=== PATIENT | male | born 2000 | race Caucasian/White ===

== ENCOUNTER 2021-07-20 20:14 | Emergency (ER) | payer OTHER ==
[~2021-07-20] VITALS: Ht 165.1 cm; Wt 74.8 kg
--- NOTE | 2021-07-20 20:51 | NUR ---
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
[2021-07-20] MEDS ORDERED: LIDOCAINE 2%-EPI 1:100,000 20 ML VIAL TP ONE (21:00)
[2021-07-20] MEDS ORDERED: LIDOCAINE 2%-EPI 1:100,000 20 ML VIAL ONE (21:27)
[2021-07-20] MEDS ORDERED: ONDA4TAB5 PO (22:18)
[2021-07-20] MEDS ORDERED: IV NS 1000 ML 1,000 ML IV ONE (22:30)
--- NOTE | 2021-07-20 22:35 | NUR ---
Patient discharged to home in stable condition. Written and verbal after care instructions given. Patient verbalizes understanding of instructions. Stressed follow up or return to ER for worsening s/s.
[2021-07-20 22:36] VITALS: BP 120/84
== END 2021-07-20 22:36 | disposition home or self-care (01) ==
LOC: ER 20:16
DX: S06.0X0A Concussion without loss of consciousness, initial encounter (principal); S01.01XA Laceration without foreign body of scalp, initial encounter; W22.8XXA Striking against or struck by other objects, initial encounter; Y92.89 Other specified places as the place of occurrence of the external cause; Y99.0 Civilian activity done for income or pay
CPT/HCPCS: 70450; A4663; L8699

== ENCOUNTER 2021-08-29 20:41 | Emergency (ER) | payer OTHER ==
[~2021-08-29] VITALS: Ht 172.7 cm; Wt 69.9 kg
[~2021-08-29 20:41] MED LIST: ONDA4TAB5 PO
--- NOTE | 2021-08-29 21:02 | NUR ---
Patient walked into ER c/o abdominal pain and 6 episodes of vomiting today. Patient is A/Ox4, not in distress. Patient is accompanied by .
[2021-08-29] MEDS ORDERED: diphenhydrAMINE 50 MG/1 ML VIAL IM ONE (21:30)
[2021-08-29] MEDS ORDERED: METOCLOPRAMIDE HCL 10 MG/2 ML VIAL IM ONE (21:30)
[2021-08-29] MEDS ORDERED: MORPHINE SULFATE 4 MG/1 ML DISP.SYRIN IM ONE (21:30)
--- NOTE | 2021-08-29 21:30 | NUR ---
Patient's at bedside
[2021-08-29] MEDS ORDERED: diphenhydrAMINE 50 MG/1 ML VIAL ONE (21:32)
[2021-08-29] MEDS ORDERED: METOCLOPRAMIDE HCL 10 MG/2 ML VIAL ONE (21:33)
[2021-08-29] MEDS ORDERED: MORPHINE SULFATE 4 MG/1 ML DISP.SYRIN ONE (21:33)
[2021-08-29 21:50] LABS: HEMATOCRIT 43.9 % (36.7-47.1); MEAN CORPUSCULAR HEMOGLOBIN 30.5 uug (23.8-33.4); MEAN CORPUSCULAR VOLUME 85.1 fL (73.0-96.2); PLATELET COUNT (AUTO) 300 K/uL (152-348)
[2021-08-29 21:57] LABS: CARBON DIOXIDE 28 mmol/L (21-32); CHLORIDE 100 mmol/L (98-107); CREATININE 0.9 mg/dL (0.6-1.3); GLUCOSE 109 mg/dL (74-106); POTASSIUM 3.2 mmol/L (3.5-5.1); UREA NITROGEN, BLOOD 9 mg/dL (7-18)
[2021-08-29 22:03] LABS: ALANINE AMINOTRANSFERASE 19 U/L (16-63); ALKALINE PHOSPHATASE 77 U/L (50-136); BILIRUBIN,DIRECT 0.3 mg/dL (0.0-0.2); BILIRUBIN,TOTAL 1.1 mg/dL (0.2-1.0); LIPASE 104 U/L (73-393)
[2021-08-29 22:07] LABS: ASPARTATE AMINOTRANSFERASE < 5 U/L (15-37)
[2021-08-29 22:30] LABS: *BILIRUBIN,URIN NEGATIVE (NEGATIVE); *BLOOD, URINE 1+ (NEGATIVE); *CLARITY,URINE CLEAR (CLEAR); *COLOR,URINE YELLOW (YELLOW); *KETONES,URINE 4+ (NEGATIVE); LEUKOCYTE ESTERASE ,URINE NEGATIVE (NEGATIVE); NITRITE, URINE NEGATIVE (NEGATIVE); PH,URINE 8.5 (5.0-8.0); UGLUCOSE NEGATIVE (NEGATIVE)
[2021-08-29 22:43] LABS: BACTERIA,URINE NONE SEEN /HPF (NONE SEEN); SQUAMOUS EPITHELIAL CELL,UR FEW /HPF (NONE SEEN); WBC,URINE NONE SEEN /HPF (0-3)
[2021-08-29] MEDS ORDERED: POTASSIUM CHLORIDE 20 MEQ TAB.PRT.SR PO ONE (23:30)
[2021-08-29] MEDS ORDERED: POTASSIUM CHLORIDE 20 MEQ TAB.PRT.SR ONE (23:46)
[2021-08-30] MEDS ORDERED: DIPH25CA83 PO (00:05)
[2021-08-30] MEDS ORDERED: METO-295 PO (00:05)
[2021-08-30] MEDS ORDERED: SIME125C81 PO (00:05)
--- NOTE | 2021-08-30 00:10 | NUR ---
Patient discharged to home in stable condition. Written and verbal after care instructions given. Patient verbalizes understanding of instructions. Stressed follow up or return to ER for worsening s/s. Patient is A/Ox4, not in distress. Patient is able to walk with steady gait. Patient is accompanied by
[2021-08-30 00:16] VITALS: BP 128/76
== END 2021-08-30 00:10 | disposition home or self-care (01) ==
LOC: ER 20:45
DX: R10.33 Periumbilical pain (principal); R19.7 Diarrhea, unspecified; R11.2 Nausea with vomiting, unspecified; D72.829 Elevated white blood cell count, unspecified; R03.0 Elevated blood-pressure reading, without diagnosis of hypertension
CPT/HCPCS: 36415; 80048; 80076; 81001; 83690; 85025; 96372 ×2; 99284; J1200; J2270; J2765; A4663

== ENCOUNTER 2021-09-02 06:49 | Emergency (ER) | payer OTHER ==
[~2021-09-02] VITALS: Ht 165.1 cm; Wt 70.8 kg
[~2021-09-02 06:49] MED LIST changes: +DIPH25CA83 PO; +METO-295 PO; +SIME125C81 PO
--- NOTE | 2021-09-02 07:09 | NUR ---
PT IS IN ROOM #1B. DR ROBERT EVALUATED THE PT.
[2021-09-02] MEDS ORDERED: IV NORMAL SALINE 1000 ML BAG IV ONE (07:15)
[2021-09-02] MEDS ORDERED: FAMOTIDINE. 20 MG/2 ML VIAL IV ONE ×2 (07:15→07:16)
[2021-09-02] MEDS ORDERED: KETOROLAC TROMETHAMINE 30 MG INJ IVP ONE (07:15)
[2021-09-02] MEDS ORDERED: ONDANSETRON 4 MG/2 ML VIAL IV ONE (07:15)
[2021-09-02] MEDS ORDERED: KETOROLAC TROMETHAMINE 30 MG INJ ONE (07:16)
[2021-09-02] MEDS ORDERED: ONDANSETRON 4 MG/2 ML VIAL ONE (07:17)
[2021-09-02 07:35] LABS: HEMATOCRIT 47.2 % (36.7-47.1); MEAN CORPUSCULAR VOLUME 83.8 fL (73.0-96.2); PLATELET COUNT (AUTO) 322 K/uL (152-348)
[2021-09-02 07:50] LABS: BILIRUBIN,DIRECT 0.5 mg/dL (0.0-0.2); BILIRUBIN,TOTAL 1.6 mg/dL (0.2-1.0); CREATININE 0.9 mg/dL (0.6-1.3); TOTAL PROTEIN, SERUM 8.5 g/dL (6.4-8.2)
[2021-09-02 07:52] LABS: POTASSIUM 2.6 mmol/L (3.5-5.1)
[2021-09-02] MEDS ORDERED: IV NS + KCL 40 MEQ 1000 ML BAG IV ONE (08:00)
[2021-09-02 08:05] LABS: *BILIRUBIN,URIN NEGATIVE (NEGATIVE); *BLOOD, URINE 1+ (NEGATIVE); *CLARITY,URINE CLEAR (CLEAR); *COLOR,URINE YELLOW (YELLOW); *KETONES,URINE 1+ (NEGATIVE); LEUKOCYTE ESTERASE ,URINE NEGATIVE (NEGATIVE); NITRITE, URINE NEGATIVE (NEGATIVE); UGLUCOSE NEGATIVE (NEGATIVE)
[2021-09-02] MEDS ORDERED: POTASSIUM CHLORIDE 20 MEQ TAB.PRT.SR PO ONE (08:15)
[2021-09-02] MEDS ORDERED: POTASSIUM CHLORIDE 20 MEQ TAB.PRT.SR ONE (08:27)
[2021-09-02] MEDS ORDERED: METOCLOPRAMIDE HCL 10 MG/2 ML VIAL IV ONE (08:30)
[2021-09-02] MEDS ORDERED: METOCLOPRAMIDE HCL 10 MG/2 ML VIAL ONE (08:30)
[2021-09-02] MEDS ORDERED: POTA10CA43 PO (09:10)
[2021-09-02] MEDS ORDERED: OMEP20CA15 PO (09:16)
--- NOTE | 2021-09-02 10:10 | NUR ---
PT WAS D/C'd TO HOME AFTER DR ROBERT RE-EVALUATION. D/C INSTRUCTIONS GIVEN TO THE PT BY DR ROBERT.
[2021-09-02 10:12] VITALS: BP 136/69
[2021-09-02 13:49] LABS: SQUAMOUS EPITHELIAL CELL,UR NONE SEEN /HPF (NONE SEEN); WBC,URINE NONE SEEN /HPF (0-3)
[2021-09-02 13:52] LABS: BACTERIA,URINE FEW /HPF (NONE SEEN)
== END 2021-09-02 10:18 | disposition home or self-care (01) ==
LOC: ER 07:00
DX: R10.84 Generalized abdominal pain (principal); E87.6 Hypokalemia; Z83.3 Family history of diabetes mellitus
CPT/HCPCS: 36415; 74176; 80048; 80076; 81001; 83690; 85025; 96361; 96365; 96366; 96375; 99284; J1885; J2405; J2765; J3490; J7040; A4663

== ENCOUNTER 2021-12-02 00:20 | Emergency (ER) | payer OTHER ==
[~2021-12-02] VITALS: Ht 165.1 cm; Wt 74.8 kg
[~2021-12-02 00:20] MED LIST changes: +OMEP20CA15 PO; +POTA10CA43 PO
--- NOTE | 2021-12-02 00:20 | NUR ---
IN ED WITH REPORT OF ABD PAIN WITH N/V CHRONIC, ONSET X 1 YR AGO. REPORTS VOMITING BLOOD AND HAVING DARK STOOLS. PATIENT IS ACCOMPANIED BY HIS FATHER.MAP INSERTED INTO LEFT FA # 18 G AND MEDICATIED PER MD'S ORDER.
[2021-12-02] MEDS ORDERED: PROCHLORPERAZINE EDISYLATE 10 MG/2 ML VIAL IV ONE (00:45)
[2021-12-02] MEDS ORDERED: HYDROMORPHONE 1 MG/1 ML DISP.SYRIN IV ONE (00:45)
[2021-12-02] MEDS ORDERED: IV NS 1000 ML 1,000 ML IV ONE (00:45)
[2021-12-02] MEDS ORDERED: IV NORMAL SALINE 1000 ML BAG IV ONE (00:45)
[2021-12-02] MEDS ORDERED: PROCHLORPERAZINE EDISYLATE 10 MG/2 ML VIAL ONE (01:16)
[2021-12-02] MEDS ORDERED: HYDROMORPHONE 1 MG/1 ML DISP.SYRIN ONE (01:16)
[2021-12-02 01:47] LABS: HEMATOCRIT 44.9 % (36.7-47.1); MEAN CORPUSCULAR HEMOGLOBIN 30.9 uug (23.8-33.4); MEAN CORPUSCULAR VOLUME 86.8 fL (73.0-96.2); PLATELET COUNT (AUTO) 314 K/uL (152-348)
[2021-12-02 01:48] LABS: BILIRUBIN,DIRECT 0.1 mg/dL (0.0-0.2); BILIRUBIN,TOTAL 0.6 mg/dL (0.2-1.0); CREATININE 1.1 mg/dL (0.6-1.3); POTASSIUM 3.5 mmol/L (3.5-5.1); TOTAL PROTEIN, SERUM 8.8 g/dL (6.4-8.2)
--- NOTE | 2021-12-02 02:00 | NUR ---
VSS, DENIES DISCOMFORT AND PATIENT GIVEN D/C INSTRUCTIONS. HE VERBALIZED UNDERSTANDING, MAP DISCONT WITH CATH INTACT.
[2021-12-02] MEDS ORDERED: IOHEXOL 300MG/ML 50 ML VIAL ONE ×2 (02:31→02:32)
[2021-12-02] MEDS ORDERED: IV NORMAL SALINE 250 ML IV ONE (02:32)
[2021-12-02] MEDS ORDERED: SWABABLE VALVE TRANSFER SET EA MC ONE (02:32)
--- NOTE | 2021-12-02 02:43 | NUR ---
DENIES DISCOMFOR AND OFF TO CT FOR ABD CT SCAN.
[2021-12-02] MEDS ORDERED: PROC10TA29 PO (04:30)
[2021-12-02] MEDS ORDERED: LEVO500T90 PO (04:30)
[2021-12-02] MEDS ORDERED: OXYC-128 PO (04:30)
[2021-12-02] MEDS ORDERED: levoFLOXacin 500 MG TABLET PO ONE (04:30)
[2021-12-02 10:49] VITALS: BP 108/61
== END 2021-12-02 02:00 | disposition home or self-care (01) ==
LOC: ER 00:22
DX: R10.13 Epigastric pain (principal); R11.10 Vomiting, unspecified; R19.7 Diarrhea, unspecified; Z83.3 Family history of diabetes mellitus; E87.2 Acidosis; D72.829 Elevated white blood cell count, unspecified; R73.9 Hyperglycemia, unspecified
CPT/HCPCS: 99285; 74177; 96374; 96375; 80076; 80048; 83036; 83690; 83735; 85025; 36415; 82533; 83605 ×2; Q9967 ×2; J0780; J1170; J7040 ×2; A4663

== ENCOUNTER 2023-03-18 22:50 | Emergency (ER) | payer OTHER ==
[~2023-03-18 22:50] MED LIST changes: +LEVO500T90 PO; +OXYC-128 PO; +PROC10TA29 PO
== END 2023-03-19 00:40 | disposition left against medical advice (07) ==
LOC: ER 22:53
DX: Z53.21 Procedure and treatment not carried out due to patient leaving prior to being seen by health care provider (principal)